=== PATIENT | female | born 2000 | race African-American/Black ===

== ENCOUNTER → 2020-01-30 | Emergency (ER) | payer OTHER ==
[~2020-01-30] MED LIST: ACETAMINOPHEN 500 MG TAB As Ordered ONE
[2020-02-03 20:19] LABS: HCG, SERUM QUALITATIVE NEGATIVE (NEGATIVE)
== END | disposition home or self-care (01) ==
LOC: M ED 12:45
DX: S09.90XA Unspecified injury of head, initial encounter (principal); V48.5XXA Car driver injured in noncollision transport accident in traffic accident, initial encounter; Y92.410 Unspecified street and highway as the place of occurrence of the external cause; Y93.89 Activity, other specified; Y99.9 Unspecified external cause status